=== PATIENT | male | born 1995 | race Two or more races ===

== ENCOUNTER 2020-11-21 15:13 | Emergency (ER) | payer SELFPAY ==
[~2020-11-21] VITALS: Ht 172.7 cm; Wt 63.5 kg
[~2020-11-21 15:13] MED LIST: CEPH250A PO; CEPH250SUA PO; CEPH500 PO; CIPRSO OS; CODACE30 PO; CODACEE120 PO; HYDACE5 PO; IBUP400 PO; IBUP600 PO; METPHE5 PO; SILSUL1TC TOP; SULTRIEL PO
== END 2020-11-21 17:44 | disposition left against medical advice (07) ==
LOC: ER 15:13
DX: R21 Rash and other nonspecific skin eruption (principal); Z53.20 Procedure and treatment not carried out because of patient's decision for unspecified reasons
CPT/HCPCS: 99282